=== PATIENT | male | born 1965 | race African-American/Black ===

== ENCOUNTER 2018-07-04 16:07 | Emergency (ER) | payer OTHER ==
[~2018-07-04] VITALS: Ht 180.3 cm; Wt 88.8 kg
[2018-07-04] MEDS ORDERED: PERCOCET 5/31 TABLET PO (18:41)
[2018-07-04] MEDS ORDERED: MEDROL DOSEPAK4 MG PO (18:41)
[2018-07-04] MEDS ORDERED: FLEXERIL10 MG PO (18:41)
[2018-07-04 18:48] VITALS: BP 145/87
== END 2018-07-04 18:48 | disposition home or self-care (01) ==
LOC: EME 16:07
DX: M54.42 Lumbago with sciatica, left side (principal); M54.41 Lumbago with sciatica, right side; G89.29 Other chronic pain
CPT/HCPCS: 99281; 99284; J1885; J7512